=== PATIENT | male | born 1995 | race Caucasian/White ===

== ENCOUNTER 2017-09-18 16:57 | Emergency (ER) | payer OTHER, MEDICAID ==
[2017-09-18 17:47] LABS: HEMATOCRIT 49.4 % (42.0-52.0); MEAN CORPUSCULAR HEMOGLOBIN 30.1 pg (27.0-33.0); MEAN CORPUSCULAR HGB CONC 34.4 g/dl (32.0-36.5); MEAN CORPUSCULAR VOLUME 87.4 fl (80.0-96.0); PLATELET COUNT, AUTOMATED 198 10^3/uL (150-450); RED BLOOD COUNT 5.65 10^6/uL (4.30-6.10); RED CELL DISTRIBUTION WIDTH 12.7 % (11.5-14.5); WHITE BLOOD COUNT 9.5 10^3/uL (4.0-10.0)
[2017-09-18 18:27] LABS: AMPHETAMINES LEVEL URINE NEGATIVE (NEGATIVE); BARBITURATES URINE NEGATIVE (NEGATIVE); BENZODIAZEPINES URINE NEGATIVE (NEGATIVE); CANNABINOIDS URINE NEGATIVE (NEGATIVE); COCAINE METABOLITE URINE NEGATIVE (NEGATIVE); METHADONE URINE NEGATIVE (NEGATIVE); OPIATES URINE NEGATIVE (NEGATIVE); PHENCYCLIDINE URINE NEGATIVE (NEGATIVE)
[2017-09-18 18:34] LABS: ALBUMIN 4.2 GM/DL (3.2-5.2); ALBUMIN/GLOBULIN RATIO 1.05 (1.00-1.93); ALKALINE PHOSPHATASE 96 U/L (45-117); ALT/SGPT 33 U/L (12-78); ANION GAP 4 MEQ/L (8-16); AST/SGOT 22 U/L (7-37); BILIRUBIN,DIRECT 0.2 MG/DL (0.0-0.2); BILIRUBIN,TOTAL 0.8 MG/DL (0.2-1.0); BLOOD UREA NITROGEN 13 MG/DL (7-18); CALCIUM LEVEL 9.1 MG/DL (8.5-10.1); CARBON DIOXIDE LEVEL 31 MEQ/L (21-32); CHLORIDE LEVEL 105 MEQ/L (98-107); CREATININE FOR GFR 0.88 MG/DL (0.70-1.30); ETHYL ALCOHOL (ETHANOL) 0.003 % (0.000-0.010); GLUCOSE, FASTING 88 MG/DL (70-100); POTASSIUM SERUM 4.1 MEQ/L (3.5-5.1); SALICYLATE LEVEL < 1.7 MG/DL (5.0-30.0); SODIUM LEVEL 140 MEQ/L (136-145); TOTAL PROTEIN 8.2 GM/DL (6.4-8.2)
[2017-09-18 18:41] LABS: ACETAMINOPHEN LEVEL < 2.0 UG/ML (10.0-30.0)
== END 2017-09-18 22:16 | disposition home or self-care (01) ==
LOC: M ED 16:57
DX: F43.0 Acute stress reaction (principal); Z91.02 Food additives allergy status
CPT/HCPCS: 80320

== ENCOUNTER 2017-12-09 01:27 | Inpatient (IN) | payer MEDICAID, SELFPAY, OTHER ==
[2017-12-09 01:54] LABS: HEMATOCRIT 46.7 % (42.0-52.0); HEMOGLOBIN 16.1 g/dl (13.5-17.5); MEAN CORPUSCULAR HEMOGLOBIN 29.4 pg (27.0-33.0); MEAN CORPUSCULAR HGB CONC 34.5 g/dl (32.0-36.5); MEAN CORPUSCULAR VOLUME 85.4 fl (80.0-96.0); PLATELET COUNT, AUTOMATED 197 10^3/uL (150-450); RED BLOOD COUNT 5.47 10^6/uL (4.30-6.10); RED CELL DISTRIBUTION WIDTH 12.2 % (11.5-14.5); WHITE BLOOD COUNT 6.1 10^3/uL (4.0-10.0)
[2017-12-09 02:32] LABS: AMPHETAMINES LEVEL URINE NEGATIVE (NEGATIVE); BARBITURATES URINE NEGATIVE (NEGATIVE); BENZODIAZEPINES URINE NEGATIVE (NEGATIVE); CANNABINOIDS URINE NEGATIVE (NEGATIVE); COCAINE METABOLITE URINE NEGATIVE (NEGATIVE); METHADONE URINE NEGATIVE (NEGATIVE); OPIATES URINE NEGATIVE (NEGATIVE); PHENCYCLIDINE URINE NEGATIVE (NEGATIVE)
[2017-12-09 02:33] LABS: ALBUMIN 3.9 GM/DL (3.2-5.2); ALBUMIN/GLOBULIN RATIO 0.95 (1.00-1.93); ALKALINE PHOSPHATASE 95 U/L (45-117); ALT/SGPT 36 U/L (12-78); ANION GAP 8 MEQ/L (8-16); AST/SGOT 23 U/L (7-37); BILIRUBIN,DIRECT 0.2 MG/DL (0.0-0.2); BILIRUBIN,TOTAL 0.3 MG/DL (0.2-1.0); BLOOD UREA NITROGEN 18 MG/DL (7-18); CALCIUM LEVEL 8.7 MG/DL (8.5-10.1); CARBON DIOXIDE LEVEL 30 MEQ/L (21-32); CHLORIDE LEVEL 106 MEQ/L (98-107); CREATININE FOR GFR 0.98 MG/DL (0.70-1.30); ETHYL ALCOHOL (ETHANOL) < 0.003 % (0.000-0.010); GLOMERULAR FILTRATION RATE > 60.0 (>60); GLUCOSE, FASTING 122 MG/DL (70-100); POTASSIUM SERUM 4.1 MEQ/L (3.5-5.1); SALICYLATE LEVEL < 1.7 MG/DL (5.0-30.0); SODIUM LEVEL 144 MEQ/L (136-145)
[2017-12-09 02:34] LABS: ACETAMINOPHEN LEVEL < 2.0 UG/ML (10.0-30.0)
[2017-12-09] MEDS ORDERED: ACETAMINOPHEN TAB 650MG DOSE (2X325MG) PO (08:45)
[2017-12-09] MEDS ORDERED: MOM 30ML SUSPENSION UDC PO (08:45)
[2017-12-09] MEDS ORDERED: MAALOX 30 ML SUSP *UDC PO (08:45)
[2017-12-10 07:28] LABS: FREE THYROXINE INDEX 2.7 % (1.4-3.8); T UPTAKE 37 % (33-40); THYROXINE (T4) 7.4 UG/DL (4.5-12.0)
[2017-12-10] MEDS ORDERED: hydrOXYzine 25 MG TAB PO (12:15)
[2017-12-10] MEDS: ARIPiprazole 10 MG TAB PO (22:33)
[2017-12-11] MEDS: PALIPERIDONE 3 MG ER TAB (INVEGA) PO (21:15)
[2017-12-12] MEDS: PALIPERIDONE 3 MG ER TAB (INVEGA) PO (21:12)
[2017-12-13] MEDS: PALIPERIDONE 3 MG ER TAB (INVEGA) PO (20:44)
[2017-12-14] MEDS: PALIPERIDONE 3 MG ER TAB (INVEGA) PO (20:54)
[2017-12-14] MEDS: traZODone 50 MG TAB PO (23:37)
[2017-12-15] MEDS: PALIPERIDONE 3 MG ER TAB (INVEGA) PO (20:34)
[2017-12-15] MEDS: traZODone 50 MG TAB PO (20:34)
== END 2017-12-16 10:00 | disposition home or self-care (01) | DRG 885 ==
LOC: M ED 01:27 → M ED INP 08:31 → M PSY 10:50
DX: F31.5 Bipolar disorder, current episode depressed, severe, with psychotic features (principal); F40.10 Social phobia, unspecified; F90.9 Attention-deficit hyperactivity disorder, unspecified type; Z91.048 Other nonmedicinal substance allergy status; R94.6 Abnormal results of thyroid function studies; Z79.899 Other long term (current) drug therapy

== ENCOUNTER 2018-02-27 04:40 | Emergency (ER) | payer OTHER, MEDICAID ==
[2018-02-27] MEDS: AMOXICILLIN 500 MG CAP PO (05:30)
== END 2018-02-27 05:48 | disposition home or self-care (01) ==
LOC: M ED 04:40
DX: H60.331 Swimmer's ear, right ear (principal); Z91.048 Other nonmedicinal substance allergy status
CPT/HCPCS: 99283

== ENCOUNTER 2018-03-05 21:05 | Emergency (ER) | payer OTHER ==
[2018-03-05 22:05] LABS: HEMOGLOBIN 15.8 g/dl (13.5-17.5); MEAN CORPUSCULAR HEMOGLOBIN 30.1 pg (27.0-33.0); MEAN CORPUSCULAR HGB CONC 34.3 g/dl (32.0-36.5); MEAN CORPUSCULAR VOLUME 87.6 fl (80.0-96.0); PLATELET COUNT, AUTOMATED 245 10^3/uL (150-450); RED BLOOD COUNT 5.25 10^6/uL (4.30-6.10); RED CELL DISTRIBUTION WIDTH 12.3 % (11.5-14.5); WHITE BLOOD COUNT 5.7 10^3/uL (4.0-10.0)
[2018-03-05 22:16] LABS: ALBUMIN 3.8 GM/DL (3.2-5.2); ALBUMIN/GLOBULIN RATIO 0.86 (1.00-1.93); ALKALINE PHOSPHATASE 97 U/L (45-117); ALT/SGPT 37 U/L (12-78); ANION GAP 9 MEQ/L (8-16); AST/SGOT 25 U/L (7-37); BILIRUBIN,DIRECT 0.1 MG/DL (0.0-0.2); BILIRUBIN,TOTAL 0.4 MG/DL (0.2-1.0); BLOOD UREA NITROGEN 16 MG/DL (7-18); CALCIUM LEVEL 8.8 MG/DL (8.5-10.1); CARBON DIOXIDE LEVEL 29 MEQ/L (21-32); CHLORIDE LEVEL 105 MEQ/L (98-107); CREATININE FOR GFR 0.99 MG/DL (0.70-1.30); GLOMERULAR FILTRATION RATE > 60.0 (>60); GLUCOSE, FASTING 111 MG/DL (70-100); SALICYLATE LEVEL < 1.7 MG/DL (5.0-30.0); SODIUM LEVEL 143 MEQ/L (136-145); TOTAL PROTEIN 8.2 GM/DL (6.4-8.2)
[2018-03-05 22:22] LABS: ACETAMINOPHEN LEVEL < 2.0 UG/ML (10.0-30.0); ETHYL ALCOHOL (ETHANOL) < 0.003 % (0.000-0.010)
[2018-03-05 22:24] LABS: AMPHETAMINES LEVEL URINE NEGATIVE (NEGATIVE); BARBITURATES URINE NEGATIVE (NEGATIVE); BENZODIAZEPINES URINE NEGATIVE (NEGATIVE); CANNABINOIDS URINE NEGATIVE (NEGATIVE); COCAINE METABOLITE URINE NEGATIVE (NEGATIVE); METHADONE URINE NEGATIVE (NEGATIVE); OPIATES URINE NEGATIVE (NEGATIVE); PHENCYCLIDINE URINE NEGATIVE (NEGATIVE)
== END 2018-03-06 00:19 | disposition home or self-care (01) ==
LOC: M ED 03-06 00:19
DX: F31.9 Bipolar disorder, unspecified (principal); F90.9 Attention-deficit hyperactivity disorder, unspecified type; F91.3 Oppositional defiant disorder; Z91.02 Food additives allergy status
CPT/HCPCS: 80320

== ENCOUNTER 2019-02-14 06:42 | Emergency (ER) | payer OTHER ==
[~2019-02-14] VITALS: Ht 185.4 cm; Wt 104.5 kg
[2019-02-14 06:42] VITALS: BP 145/88
[~2019-02-14 06:42] MED LIST: AMOX500T PO; CIPRODEX AD; IBUP-1022 PO; INVE6TAB3 PO; QUET1TAB10
[2019-02-14] MEDS ORDERED: PRED20TA PO (07:08)
[2019-02-14] MEDS ORDERED: CLAR10CA3 PO (07:08)
[2019-02-14] MEDS ORDERED: HYDR1CRE30 TOP (07:08)
[2019-02-14] MEDS ORDERED: EPIP2INJ IM (07:09)
[2019-02-14] MEDS ORDERED: HYDROCORTISONE 1% CREAM 30 GM TOP ONE (07:15)
[2019-02-14] MEDS ORDERED: predniSONE 20 MG TAB PO ONE (07:15)
[2019-02-14] MEDS ORDERED: LORATADINE 10 MG TAB PO ONE (07:15)
== END 2019-02-14 07:34 | disposition home or self-care (01) ==
LOC: M ED 06:42
DX: T63.461A Toxic effect of venom of wasps, accidental (unintentional), initial encounter (principal); Y99.0 Civilian activity done for income or pay

== ENCOUNTER 2019-08-05 17:04 | Emergency (ER) | payer OTHER ==
[~2019-08-05] VITALS: Ht 182.9 cm; Wt 103.0 kg
[~2019-08-05 17:04] MED LIST changes: +CLAR10CA3 PO; +EPIP2INJ IM; +HYDR1CRE30 TOP; +PRED20TA PO
[2019-08-05] MEDS ORDERED: ACET-683 PO (17:13)
[2019-08-05 19:46] LABS: INFLUENZA A AMPLIFICATION NEGATIVE (NEGATIVE); INFLUENZA B AMPLIFICATION POSITIVE (NEGATIVE)
[2019-08-05] MEDS ORDERED: ONDA4TAB6 PO (20:19)
[2019-08-05 20:24] VITALS: BP 128/64
== END 2019-08-05 20:26 | disposition home or self-care (01) ==
LOC: M ED 17:04
DX: J10.89 Influenza due to other identified influenza virus with other manifestations (principal)